=== PATIENT | female | born 1955 | race African-American/Black ===

== ENCOUNTER 2020-03-15 09:04 | Emergency (ER) | payer OTHER ==
[~2020-03-15] VITALS: Ht 172.7 cm; Wt 86.4 kg
[2020-03-15 10:08] LABS: BASOPHILS % (AUTO) 0.3 % (0.0-2.0); EOSINOPHILS % (AUTO) 0.7 % (1.0-6.0); LYMPHOCYTES # (AUTO) 1.2 K/uL (1.0-4.8); MEAN CORPUSCULAR HEMOGLOBIN 31.5 pg (26.0-34.0); MEAN CORPUSCULAR HGB CONC 34.8 G/dL (31.0-37.0); MEAN CORPUSCULAR VOLUME 91 fL (80-100); MONOCYTES # (AUTO) 0.4 K/uL (0.1-1.0); MONOCYTES % (AUTO) 6.2 % (2.0-9.0); NEUTROPHILS # (AUTO) 4.8 K/uL (1.8-7.7); NEUTROPHILS % (AUTO) 73.8 % (40.0-70.0); PLATELET COUNT (AUTO) 204 K/uL (150-450); RED BLOOD CELL COUNT(AUTO) 4.76 MIL/uL (4.00-5.20); RED CELL DISTRIBUTION WIDTH 13.9 % (11.5-14.5)
[2020-03-15 10:18] LABS: ANION GAP 2 mmol/L (8-16); CALCIUM, TOTAL 10.3 mg/dL (8.8-10.5); CARBON DIOXIDE 32 mmol/L (22-29); CHLORIDE 106 mmol/L (98-107); CREATININE 0.93 mg/dL (0.60-1.30); GLOMERULAR FILTR. RATE CALC > 60 mL/min (>60); GLUCOSE,RANDOM 129 mg/dL (70-110); POTASSIUM 3.6 mmol/L (3.5-5.1); SODIUM SERUM 140 mmol/L (136-145); UREA NITROGEN, BLOOD 7 mg/dL (7-18)
[2020-03-15 10:30] VITALS: BP 180/98
== END 2020-03-15 10:30 | disposition home or self-care (01) ==
LOC: EMS 09:07
DX: I10 Essential (primary) hypertension (principal)
CPT/HCPCS: 93005; 36415-L1; 36415-TC; 71045-TC